=== PATIENT | female | born 1995 | race Caucasian/White ===

== ENCOUNTER 2021-08-05 16:59 | Inpatient (IN) | payer BC, SELFPAY ==
[~2021-08-05] VITALS: Ht 167.6 cm; Wt 90.3 kg
[2021-08-05] MEDS: DEXT 5% / NACL 0.45% 1,000 ML IV SCH (00:21)
[2021-08-05 17:15] VITALS: BP 154/93
[2021-08-05 19:11] LABS: BASOPHILS % (AUTO) 0.4 % (0.0-2.0); EOSINOPHILS # (AUTO) 0.1 K/uL (0-0.4); EOSINOPHILS % (AUTO) 0.5 % (0.0-4.0); HEMATOCRIT 39.9 % (36-48); HEMOGLOBIN 13.7 g/dL (12.0-16.0); MEAN CORPUSCULAR HEMOGLOBIN 31 pg (27-31); MEAN CORPUSCULAR HGB CONC 34 g/dL (33-37); MEAN CORPUSCULAR VOLUME 89.2 fL (80-94); MONOCYTES # (AUTO) 0.7 K/uL (0.8-1.0); MONOCYTES % (AUTO) 5.4 % (1.7-9.3); NEUTROPHILS # (AUTO) 9.6 K/uL (1.8-7.7); NEUTROPHILS % (AUTO) 77.7 % (42.2-75.2); PLATELET COUNT (AUTO) 369 K/uL (140-450); RED BLOOD CELL COUNT(AUTO) 4.47 MIL/uL (4.20-5.40); RED CELL DISTRIBUTION WIDTH 13.1 % (11.6-13.7); WHITE BLOOD COUNT (AUTO) 12.4 K/uL (4.8-10.8)
[2021-08-05 19:31] LABS: ALBUMIN 3.6 g/dL (3.4-5.0); ANION GAP 15.2 (8-16); CARBON DIOXIDE 24.5 mmol/L (21-32); CREATININE 0.5 mg/dL (0.6-1.3); POTASSIUM 3.7 mmol/L (3.5-5.1); TOTAL BILIRUBIN 0.2 mg/dL (0.0-1.0)
--- NOTE | 2021-08-05 20:58 | NUR ---
provided pt blankent. pt asked if she coul t so fiance is bringing food
[2021-08-05 21:06] LABS: APPEARANCE,URINE CLEAR (CLEAR); BILIRUBIN,URINE NEGATIVE (NEGATIVE); BLOOD, URINE NEGATIVE (NEGATIVE); COLOR,URINE YELLOW (YELLOW); LEUKOCYTE ESTERASE ,URINE NEGATIVE (NEGATIVE); NITRITE, URINE NEGATIVE (NEGATIVE); PH,URINE 5.5 (5.0-9.0); UGLUCOSE NEGATIVE (NEGATIVE)
--- NOTE | 2021-08-06 02:20 | NUR ---
CONTACTED DR CARBAJAL FOR HEADACHE PAIN 11/28.
--- NOTE | 2021-08-06 03:20 | NUR ---
Spoke with patient to inform that is trying to come back but cannot come back, seems agitated and anxious, and says "i cant control what my does, I'm not going to control him".
--- NOTE | 2021-08-06 03:25 | NUR ---
spoke with patient's regarding visiting and being at bedside inside the ER, getting upset and agitated. Able to explain that the back is backed up and that understands but informed that patient will stay in the lobby or in the car and will keep waiting.
--- NOTE | 2021-08-06 03:48 | NUR ---
STANLEY COLLECTED AND HANDED TO ANTWON JOHNSON
--- NOTE | 2021-08-06 04:37 | NUR ---
PT AMBULATED TO RESTROOM.
[2021-08-06] MEDS ORDERED: PNV1TABL5 PO (04:57)
--- NOTE | 2021-08-06 07:59 | NUR ---
Pt report given to bill. supervisor properties. Transfer of care at this time.
--- NOTE | 2021-08-06 08:00 | NUR ---
REPORT RECEIVED FROM NAEEM PEARL FOR PATIENT CONTINUITY OF CARE.
[2021-08-06] MEDS ORDERED: MISOPROSTOL 200 MCG TAB PO SCH (08:02)
[2021-08-06] MEDS: DEXT 5% / NACL 0.45% 1,000 ML IV SCH (08:30)
[2021-08-06] MEDS ORDERED: MISOPROSTOL 100 MCG TAB ONE (08:32)
[2021-08-06] MEDS ORDERED: DOXYCYCLINE 200 MG in DEXTROSE 5% 250 ML IV SCH (09:00)
[2021-08-06 09:16] VITALS: BP 127/73
--- NOTE | 2021-08-06 09:16 | NUR ---
RECEIVED PT FROM DRESS OPERATOR, VIA WHEELCHAIR, PT IS AOX4, ON RA, AMBULATED TO THE BED, IV LINE NOTED ON THE LAC G. 20 WITH IVF D5 1/2 NS INFUSING AT 100ML/HR, PT DENIES PAIN AND NO SIGN OF DISTRESS NOTED, WILL CONTINUE TO MONITOR PT.
[2021-08-06] MEDS ORDERED: fentaNYL citrate 0.05 MG/ML VIAL ONE (09:26)
[2021-08-06] MEDS ORDERED: METHYLERGONOVINE 0.2 MG/ML AMP ONE (09:47)
[2021-08-06] MEDS ORDERED: ONDANSETRON 4 MG/2 ML VIAL ONE (10:00)
[2021-08-06] MEDS ORDERED: DEXAMETHASONE 10 MG/ML VIAL ONE (10:00)
[2021-08-06] MEDS ORDERED: SEVOFLURANE 250 ML BTL INH ONE (10:00)
[2021-08-06] MEDS ORDERED: PROPOFOL 200 MG/20 ML VIAL IV ONE (10:00)
[2021-08-06] MEDS ORDERED: LIDOCAINE 2% 100 MG/5 ML SYR IVP ONE (10:00)
[2021-08-06 10:12] LABS: BASOPHILS % (AUTO) 0.4 % (0.0-2.0); EOSINOPHILS # (AUTO) 0.1 K/uL (0-0.4); EOSINOPHILS % (AUTO) 1.1 % (0.0-4.0); HEMATOCRIT 37.3 % (36-48); HEMOGLOBIN 12.9 g/dL (12.0-16.0); LYMPHOCYTES # (AUTO) 2.2 K/uL (2.5-16.5); LYMPHOCYTES % (AUTO) 21.7 % (20.5-51.1); MEAN CORPUSCULAR HEMOGLOBIN 31 pg (27-31); MEAN CORPUSCULAR HGB CONC 35 g/dL (33-37); MEAN CORPUSCULAR VOLUME 89.3 fL (80-94); MONOCYTES # (AUTO) 0.7 K/uL (0.8-1.0); MONOCYTES % (AUTO) 6.9 % (1.7-9.3); NEUTROPHILS # (AUTO) 7.1 K/uL (1.8-7.7); NEUTROPHILS % (AUTO) 69.9 % (42.2-75.2); PLATELET COUNT (AUTO) 338 K/uL (140-450); RED BLOOD CELL COUNT(AUTO) 4.17 MIL/uL (4.20-5.40); WHITE BLOOD COUNT (AUTO) 10.1 K/uL (4.8-10.8)
[2021-08-06 10:27] LABS: ANION GAP 13.5 (8-16); CARBON DIOXIDE 23.4 mmol/L (21-32); CREATININE 0.4 mg/dL (0.6-1.3); POTASSIUM 3.9 mmol/L (3.5-5.1)
[2021-08-06] MEDS ORDERED: MORPHINE SULFATE 2 MG/ML SYR IVP PRN (10:55)
[2021-08-06] MEDS ORDERED: ACETAMINOPHEN 650 MG/20.3 ML UDC PO PRN (10:55)
[2021-08-06] MEDS ORDERED: IBUPROFEN 800 MG TAB PO PRN (10:55)
[2021-08-06] MEDS ORDERED: ONDANSETRON 4 MG/2 ML VIAL IVP PRN ×2 (10:55→11:05)
[2021-08-06] MEDS ORDERED: HYDROmorphone 1 MG/ML AMP IVP PRN (11:05)
[2021-08-06] MEDS ORDERED: LACTATED RINGERS 1,000 ML IV SCH (11:05)
[2021-08-06] MEDS ORDERED: MEPERIDINE 25 MG/ML SYR IVP PRN (11:05)
[2021-08-06] MEDS ORDERED: MEPERIDINE 25 MG/ML SYR ONE (11:07)
[2021-08-06 11:45] VITALS: BP 128/75
--- NOTE | 2021-08-06 11:45 | NUR ---
PT IS BACK TO ROOM NOW FROM A DILATATION AND CURETTAGE PROCEDURE. V/S STABLE.
[2021-08-06 16:00] VITALS: BP 121/75
--- NOTE | 2021-08-06 17:22 | NUR ---
DISCHARGED PT TO HOME ACCOMPANIED BY , IV LINE AND ARM BAND REMOVED, DISCHARGED INSTRUCTIONS GIVEN TO PT AND PT VERBALIZED UNDERSTANDING
== END 2021-08-06 17:22 | disposition home or self-care (01) | DRG 779 ==
LOC: MED 16:59 → MMU 22:31 → MTU 08-06 08:53
PROVIDERS: ADMIT Family Medicine; ATTEND Family Medicine
PROC: 10D17Z9 Manual Extraction of Products of Conception, Retained, Via Natural or Artificial Opening (ICD-10-PCS; principal; 2021-08-06 08:30)
DX: O02.1 Missed abortion (principal); O36.8120 Decreased fetal movements, second trimester, not applicable or unspecified; Z20.822 Contact with and (suspected) exposure to COVID-19; Z88.8 Allergy status to other drugs, medicaments and biological substances
CPT/HCPCS: 36415; 76801; 80048; 80053; 81003; 85025; 85610; 85730; 86886; 86900; 86901; 99285; J1100; J2001; J2175; J2210; J2405; J2704; J3010; J3490; J7030; J7060; Q0092